=== PATIENT | male | born 1940 | race Caucasian/White ===

== ENCOUNTER → 2019-02-16 11:31 | Outpatient (CLI) | payer MEDICARE, OTHER, SELFPAY ==
--- NOTE | 2019-02-16 | DI.CT.S_ITS ---
PROCEDURE: CT ABDOMEN PELVIS WO CON INDICATIONS: KIDNEY STONES TECHNIQUE: Noncontrast 5 mm thick sections acquired from the diaphragms to the symphysis. 5 mm thick coronal and sagittal reformats were then performed. For radiation dose reduction, the following was used: automated exposure control, adjustment of mA and/or kV according to patient size. COMPARISON: [facility], CT, IVP (ABD & PEL WWO CONTRAST), 05/11/2016, 10:14. FINDINGS: Image quality: Excellent. Lung bases: Lung bases are clear. Heart size is normal. Urinary system: Both kidneys are normal in size. A nonobstructing staghorn calculus is present within the lower pole left kidney which measures 1.5 x 0.8 cm in diameter. There is a left upper pole pararenal cyst which is unchanged from the study dated 05/11/16. No no hydronephrosis. There is a 3 mm diameter stone within the upper right ureter (series 2, image 48). The ureter is not dilated. No left ureteral stones. The bladder is thin walled and partially fluid-filled. Echogenic debris is layered in the posterior bladder suggesting small stones. . Other solid organs: Liver is normal in size. Gallbladder is unremarkable. Pancreas is normal in contours. Spleen is normal in size. No adrenal nodules. Peritoneum and bowel: Unenhanced bowel loops demonstrate normal wall thickness and caliber. The appendix is thin walled. There are scattered sigmoid diverticula. No evidence for diverticulitis. No free fluid or air. Nodes and vessels: No retroperitoneal or mesenteric adenopathy by size criteria. Aorta and inferior vena cava are normal in caliber. There are scattered atheromatous calcifications throughout the aorta and iliac arteries bilaterally. Abdominal wall: No ventral hernias. Pelvis: No free pelvic fluid. No inguinal adenopathy. There is a small fat-containing right inguinal hernia. Bones: No suspicious bony lesions. No vertebral body compression fractures. IMPRESSION: 1. Nonobstructive left nephrolithiasis. 2. Right ureterolithiasis. No hydronephrosis or hydroureter associated with this ureteral calculus. 3. Probable small stones within the bladder. 4. Normal appendix. Diverticulosis. No acute diverticulitis. Dictated by: Megan Ruiz M.D. on 02/16/2019 at 12:01 Approved by: Megan Ruiz M.D. on 02/16/2019 at 12:28
== END ==
PROVIDERS: PCP Family Medicine; Visit Provider Urology
DX: N20.0 Calculus of kidney (principal); N21.0 Calculus in bladder
CPT/HCPCS: 74176

== ENCOUNTER → 2019-10-04 12:09 | Outpatient (CLI) | payer MEDICARE, OTHER, SELFPAY ==
--- NOTE | 2019-10-04 | DI.MRI.S_ITS ---
PROCEDURE: MR LUMBAR SPINE WO CON INDICATIONS: Spinal stenosis, lumbosacral region TECHNIQUE: Noncontrast sagittal T1 spin echo and T2 fast echo, sagittal STIR, axial T1 and T2 fast spin echo through the lumbar spine. In cases with scoliosis, additional coronal T2 fast spin echo may be performed. COMPARISON: [facility], CR, XR LUMBAR SPINE WITH OLBIQUES PLUS FLEXION EXTENSION, 09/25/2019, 11:01. [facility], , MR LUMBAR SPINE WO CON, 11/23/2017, 14:58. FINDINGS: Image quality: Excellent. Alignment and Curvature: There is normal bony alignment. Bone Marrow: Marrow is of normal overall signal. No acute vertebral body compression fractures. Spinal Cord: Conus medullaris terminates at the top of L1 level. Visualized cord demonstrates normal signal and size. Paraspinous Soft Tissues: No paravertebral masses. L1-L2: Normal appearance. L2-L3: Normal appearance. L3-L4: Interval development of a Schmorl's node involving L3, interval increase in disc height loss, interval increase in diffuse disc bulge. Moderate bilateral facet hypertrophy. Interval increase in canal stenosis, now moderate. Previously, there was right foraminal disc bulge. There is now a right foraminal disc protrusion which impinges on the right L3 nerve root in the right foramen. Mild left foraminal narrowing. L4-L5: Posterior disc bulge. Facet and ligament hypertrophy. Mild to moderate canal stenosis. Moderate bilateral foraminal narrowing with mild flattening deformity of the exiting bilateral L4 nerve roots. L5-S1: No significant change. Mild disc bulge. Facet and ligament hypertrophy. Mild canal stenosis. Moderate bilateral foraminal narrowing with mild flattening deformity on the exiting bilateral L5 nerve roots. IMPRESSION: 1. Interval progression of canal stenosis at L3-L4, now moderate. 2. Interval development of a right foraminal disc protrusion at L3-L4, impinging on the right L3 nerve root in the foramen. Question: Does this patient have a right L3 radiculopathy? 3. Canal stenosis is mild to moderate at L4-L5 and mild at L5-S1. 4. Multilevel facet arthropathy. 5. Multilevel foraminal narrowing as described above. Dictated by: Douglas Liu M.D. on 10/04/2019 at 13:35 Approved by: Douglas Liu M.D. on 10/04/2019 at 13:45
== END ==
PROVIDERS: PCP Family Medicine; Referring Provider Family Medicine; Visit Provider Physical Medicine & Rehabilitation Pain Medicine
DX: M48.07 Spinal stenosis, lumbosacral region (principal); M48.061 Spinal stenosis, lumbar region without neurogenic claudication; M51.26 Other intervertebral disc displacement, lumbar region; M47.816 Spondylosis without myelopathy or radiculopathy, lumbar region; M47.817 Spondylosis without myelopathy or radiculopathy, lumbosacral region
CPT/HCPCS: 72148

== ENCOUNTER → 2020-01-19 10:00 | Outpatient (CLI) | payer MEDICARE, OTHER, SELFPAY ==
--- NOTE | 2020-01-19 10:11 | DI.CT.S_ITS ---
PROCEDURE: CT KIDNEY URETER BLADDER (KUB) INDICATIONS: KIDNEY STONE TECHNIQUE: Noncontrast 5 mm thick sections acquired from the diaphragms to the symphysis. 5 mm thick coronal and sagittal reformats were then performed. For radiation dose reduction, the following was used: automated exposure control, adjustment of mA and/or kV according to patient size. COMPARISON: None. FINDINGS: Image quality: Excellent. Lung bases: Bibasilar dependent atelectasis is seen. Heart size is enlarged, no pericardial effusion. Urinary system: Both kidneys are normal in size. Multiple nonobstructing stones are seen in lower pole of left kidney measures up to 7 mm in size. Slight prominence of left renal collecting system and left ureter is seen extending to the level of left UVJ. No obstructing stone is noted. No right-sided hydronephrosis or perinephric fat stranding. Right ureter is within normal limits. Bladder wall thickness is normal. Enlarged prostate gland with significant mass effect of floor of urinary bladder is seen. 2 mm calcification is noted in dependent portion of bladder lumen. Other solid organs: Liver is normal in size. Gallbladder is within normal limits. Pancreas is normal in contours. Spleen is normal in size. No adrenal nodules. Peritoneum and bowel: Unenhanced bowel loops demonstrate normal wall thickness and caliber. No free fluid or air. Extensive sigmoid diverticulosis is seen, and no CT evidence of acute diverticulitis. Nodes and vessels: No retroperitoneal or mesenteric adenopathy by size criteria. Aorta and inferior vena cava are normal in caliber. Abdominal wall: No ventral hernias. Pelvis: No free pelvic fluid. No inguinal hernias or adenopathy. Bones: No suspicious bony lesions. No vertebral body compression fractures. IMPRESSION: 1. Finding is suggestive of a passed 2 mm left renal stone with mild residual left-sided hydronephrosis and hydroureter and 2 mm stone seen in dependent portion of bladder lumen. Nonobstructing left renal calculi. No right-sided renal stone hydronephrosis. 2. Enlarged prostate gland with significant mass effect on floor of urinary bladder. 3. No bowel obstruction. Extensive sigmoid diverticulosis, no CT evidence of acute diverticulitis. No free fluid or free air. Dictated by: Wolf Sherman M.D. on 01/19/2020 at 11:34 Approved by: Wolf Sherman M.D. on 01/19/2020 at 11:49
== END ==
PROVIDERS: PCP Family Medicine; Referring Provider Urology; Visit Provider Urology
DX: N13.2 Hydronephrosis with renal and ureteral calculous obstruction (principal); N40.0 Benign prostatic hyperplasia without lower urinary tract symptoms; K57.30 Diverticulosis of large intestine without perforation or abscess without bleeding
CPT/HCPCS: 74176

== ENCOUNTER → 2020-12-12 11:32 | Outpatient (CLI) | payer MEDICARE, OTHER, SELFPAY ==
--- NOTE | 2020-12-12 | DI.MRI.S_ITS ---
PROCEDURE: MR LUMBAR SPINE WO CON INDICATIONS: Spinal stenosis, lumbar region TECHNIQUE: Noncontrast sagittal T1 spin echo and T2 fast echo, sagittal STIR, axial T1 and T2 fast spin echo through the lumbar spine. In cases with scoliosis, additional coronal T2 fast spin echo may be performed. COMPARISON: [facility], MR, MR LUMBAR SPINE WO CON, 10/04/2019, 12:18. FINDINGS: Image quality: Excellent. Alignment and Curvature: Straightening of the normal lordotic curvature. Grade 1 anterolisthesis of L3 on L4 Bone Marrow: Marrow is of normal overall signal. No acute vertebral body compression fractures. Multilevel degenerative endplate sclerosis and spurring. Diffuse facet arthropathy. Large Schmorl's node involving the inferior endplate of L3 without adjacent marrow edema and unchanged appearance. Spinal Cord: Conus medullaris terminates at the L1 level. Visualized cord demonstrates normal signal and size. Paraspinous Soft Tissues: Bilateral presumed parapelvic cysts, indeterminate. T12-L1: Normal appearance. L1-L2: Normal appearance. L2-L3: Normal appearance. L3-L4: Mild dorsal epidural lipomatosis. Mild central canal narrowing. Partial effacement of both lateral recesses with asymmetric appearance, right greater than left. Mild left foraminal narrowing which is unchanged. Severe right foraminal stenosis with nerve root compression, also unchanged. L4-L5: No high-grade central canal narrowing. Partial effacement of both lateral recesses with bilaterally symmetric appearance. Moderate right foraminal narrowing. Moderate left foraminal stenosis. No interval change L5-S1: No high-grade central canal narrowing. Partial effacement of both lateral recesses with bilaterally symmetric appearance. Mild to moderate right foraminal narrowing. Mild left foraminal narrowing. No interval change IMPRESSION: Overall, no interval change since 10/04/19. Numerous bilateral foraminal stenoses as outlined above by spinal level. Grade 1 anterolisthesis of L3 on L4 as before. Dictated by: Palmer Valentin M.D. on 12/12/2020 at 13:45 Approved by: Palmer Valentin M.D. on 12/12/2020 at 13:51
== END ==
PROVIDERS: PCP Family Medicine; Referring Provider Physical Medicine & Rehabilitation Pain Medicine; Visit Provider Physical Medicine & Rehabilitation Pain Medicine
DX: M48.062 Spinal stenosis, lumbar region with neurogenic claudication (principal); M48.07 Spinal stenosis, lumbosacral region; M43.16 Spondylolisthesis, lumbar region
CPT/HCPCS: 72148

== ENCOUNTER → 2021-10-15 11:15 | Outpatient (CLI) | payer MEDICARE, OTHER, SELFPAY ==
--- NOTE | 2021-10-15 11:18 | DI.RAD.S_ITS ---
PROCEDURE: XR ABDOMEN 1V INDICATIONS: INCREASING BACK PAIN TECHNIQUE: One view of the abdomen acquired. COMPARISON: None. FINDINGS: Surgical changes and devices: None. Bowel: Bowel gas pattern is normal. Soft tissues: Probable left lower pole renal stone. Visualized solid organ contours appear normal in size. Bones: No suspicious bony lesions. Minimal degenerative levocurvature centered at L3. IMPRESSION: Probable left renal stone. Degenerative change in the lumbar spine. Dictated by: Douglas Liu M.D. on 10/15/2021 at 12:36 Approved by: Douglas Liu M.D. on 10/15/2021 at 12:37
== END ==
PROVIDERS: PCP Family Medicine; Referring Provider Urology; Visit Provider Urology
DX: N20.0 Calculus of kidney (principal); M47.816 Spondylosis without myelopathy or radiculopathy, lumbar region
CPT/HCPCS: 74018

== ENCOUNTER → 2022-04-29 10:30 | Outpatient (CLI) | payer MEDICARE, OTHER, SELFPAY ==
--- NOTE | 2022-04-29 | DI.US.S_ITS ---
PROCEDURE: US PERIPH VENOUS LOW EXTREM LT INDICATIONS: Rule out DVT lower left extremity TECHNIQUE: Real-time imaging, as well as color and pulse Doppler interrogation, were performed of the lower extremity deep veins from the inguinal ligament to the popliteal fossa. COMPARISON: None. FINDINGS: The common femoral, femoral and popliteal veins are normally compressible, and free of intraluminal thrombus. Color and pulse Doppler demonstrate normal phasic intraluminal flow. There is normal augmentation response to distal compression maneuver. IMPRESSION: No deep venous thrombosis. Dictated by: Shireen Infante M.D. on 04/29/2022 at 13:09 Approved by: Shireen Infante M.D. on 04/29/2022 at 13:09
== END ==
PROVIDERS: PCP Family Medicine; Referring Provider Physical Medicine & Rehabilitation Pain Medicine; Visit Provider Physical Medicine & Rehabilitation Pain Medicine
DX: M48.062 Spinal stenosis, lumbar region with neurogenic claudication (principal)
CPT/HCPCS: 93971

== ENCOUNTER → 2022-05-07 13:32 | Outpatient (CLI) | payer MEDICARE, OTHER, SELFPAY ==
--- NOTE | 2022-05-07 | DI.MRI.S_ITS ---
PROCEDURE: MR LUMBAR SPINE WO CON INDICATIONS: Spinal stenosis, lumbar region TECHNIQUE: Noncontrast sagittal T1 spin echo and T2 fast echo, sagittal STIR, and T2 fast spin echo through the lumbar spine. In cases with scoliosis, additional coronal T2 fast spin echo may be performed. COMPARISON: [facility], MR, MR LUMBAR SPINE WO CON, 12/12/2020, 11:43. FINDINGS: Image quality: Excellent. Alignment and Curvature: Mild grade 1 anterior spondylolisthesis L4-5, degenerative. Bone Marrow: Edematous Modic type 1 degenerative endplate changes at L3-4 are similar to the prior Spinal Cord: Conus medullaris terminates at the L1 level. Visualized cord demonstrates normal signal and size. Paraspinous Soft Tissues: No paravertebral masses. T12-L1: Normal appearance. L1-L2: Normal appearance. L2-L3: Disc space is maintained. Mild circumferential disc bulge with mild central stenosis. No foraminal stenosis L3-L4: Circumferential disc bulge with hypertrophic facet joints and ligamentum flavum laxity results in moderate central stenosis with effacement of the right lateral recess. Severe right and mild left foraminal stenosis. L4-L5: Disc space is maintained. Circumferential disc bulge and hypertrophic facet joints results in mild central stenosis. There is effacement of the left lateral recess. No foraminal stenosis L5-S1: Circumferential disc bulge with hypertrophic facet joints results in mild central stenosis. Moderate left and mild right foraminal stenosis IMPRESSION: 1. Multilevel degenerative disc disease and arthropathy results in varying degrees of central and foraminal stenosis including moderate central stenosis at L3-4 with effacement of the right lateral recess, similar to the prior Approved by: Eliseo Leo M.D. on 05/07/2022 at 18:08
== END ==
PROVIDERS: PCP Family Medicine; Referring Provider Physical Medicine & Rehabilitation Pain Medicine; Visit Provider Physical Medicine & Rehabilitation Pain Medicine
DX: M48.062 Spinal stenosis, lumbar region with neurogenic claudication (principal); M48.07 Spinal stenosis, lumbosacral region; M51.36 Other intervertebral disc degeneration, lumbar region; M51.37 Other intervertebral disc degeneration, lumbosacral region; M47.816 Spondylosis without myelopathy or radiculopathy, lumbar region
CPT/HCPCS: 72148

== ENCOUNTER → 2022-10-28 12:18 | Outpatient (CLI) | payer MEDICARE, OTHER, SELFPAY ==
--- NOTE | 2022-10-28 12:20 | DI.RAD.S_ITS ---
PROCEDURE: XR KUB INDICATIONS: Kidney stones TECHNIQUE: One view of the abdomen acquired. COMPARISON: [facility], CT, CT KIDNEY URETER BLADDER (KUB), 01/19/2020, 10:02. FINDINGS: Surgical changes and devices: None. Bowel: Bowel gas pattern is normal. Soft tissues: Multiple calcifications are seen projecting over the inferior pole of left kidney, the largest of which measures up to 8 mm. A calcification is seen projecting over the bladder in the midline, which could represent a phlebolith or a bladder calculus. Visualized solid organ contours appear normal in size. Bones: No suspicious bony lesions. Mild levoconvex curvature of the spine and focal degenerative changes at the L3-4 disc space level on the right. IMPRESSION: 1. Multiple left renal calculi measuring up to 8 mm. 2. Nonspecific calculi location projecting over the midline pelvis. A bladder calculus is not excluded. Approved by: Luis Miguel Fishman M.D. on 10/28/2022 at 16:29
== END ==
PROVIDERS: PCP Family Medicine; Referring Provider Urology; Visit Provider Urology
DX: N20.0 Calculus of kidney (principal); N40.1 Benign prostatic hyperplasia with lower urinary tract symptoms; N32.0 Bladder-neck obstruction; R39.9 Unspecified symptoms and signs involving the genitourinary system; R35.1 Nocturia
CPT/HCPCS: 74018; 81002; 99214

== ENCOUNTER → 2022-10-29 12:46 | Outpatient (CLI) | payer MEDICARE, OTHER, SELFPAY ==
--- NOTE | 2022-10-29 12:47 | DI.CT.S_ITS ---
PROCEDURE: CT ABDOMEN PELVIS WO CON INDICATIONS: Urinary calculi TECHNIQUE: Noncontrast 5 mm thick sections acquired from the diaphragms to the symphysis. 5 mm coronal and sagittal reformats were then performed. For radiation dose reduction, the following was used: automated exposure control, adjustment of mA and/or kV according to patient size. COMPARISON: [facility], CT, CT KIDNEY URETER BLADDER (KUB), 01/19/2020, 10:02. [facility], CT, CT ABDOMEN PELVIS WO CON, 02/16/2019, 11:50. FINDINGS: Image quality: Good Lower chest: Basal scarring/atelectasis, with some peripheral reticulation. Small hiatal hernia and mild distal esophageal wall thickening. Cardiomegaly. Coronary calcifications. Solid organs: Liver is unremarkable. Gallbladder is unremarkable. No pathologic dilation of the biliary tree or pancreatic duct. No splenomegaly. No adrenal nodules. No calcified right intrarenal calculus. No right hydronephrosis. Overall stable burden of stones in the left kidney, with the largest in the left lower pole measuring eight by 7 by 10 mm, with a Hounsfield unit of 540. Other smaller stones are present, under 5 mm. No left hydronephrosis. There are bladder stones, the largest layering dependently measuring 7 x 7 x 6 mm, Hounsfield units of 812. Vessels and lymph nodes: No pathologic adenopathy by size criteria. No abdominal aortic aneurysm. Bowel and peritoneum: Colonic diverticulosis. Wall thickening of the distal colon likely related to chronic diverticular disease, similar to prior, consider correlation with colonoscopy results. No pathologic ascites. The cecum is flipped into the upper abdomen, as before no abscess identified. Body wall: Unremarkable Pelvis: Prostatomegaly and heterogeneity with calcifications, not well evaluated on CT. Fat containing right inguinal hernia. Bones: No acute or suspicious osseous finding. There are degenerative changes. Progressed degenerative changes at L3-L4. IMPRESSION: Overall stable intrarenal stone burden in the left kidney compared to December 2019. No hydronephrosis. Bladder stone is also present, which is increased. Other findings as above Dictated by: Drake Bender M.D. on 10/29/2022 at 16:02 Approved by: Drake Bender M.D. on 10/29/2022 at 16:09
== END ==
PROVIDERS: PCP Family Medicine; Referring Provider Urology; Visit Provider Urology
DX: N20.9 Urinary calculus, unspecified (principal); N20.0 Calculus of kidney; N21.0 Calculus in bladder; K44.9 Diaphragmatic hernia without obstruction or gangrene; I51.7 Cardiomegaly; I25.10 Atherosclerotic heart disease of native coronary artery without angina pectoris; K57.90 Diverticulosis of intestine, part unspecified, without perforation or abscess without bleeding; N40.0 Benign prostatic hyperplasia without lower urinary tract symptoms; M47.816 Spondylosis without myelopathy or radiculopathy, lumbar region
CPT/HCPCS: 74176

== ENCOUNTER → 2022-11-09 14:13 | Outpatient (CLI) | payer MEDICARE, OTHER, SELFPAY | PROVIDERS: PCP Family Medicine; Visit Provider Urology | DX: N20.0 Calculus of kidney (principal); N20.9 Urinary calculus, unspecified; N21.0 Calculus in bladder; N32.0 Bladder-neck obstruction; R39.9 Unspecified symptoms and signs involving the genitourinary system; N40.1 Benign prostatic hyperplasia with lower urinary tract symptoms; R35.1 Nocturia | CPT/HCPCS: 81002; 87086; 99214 ==

== ENCOUNTER 2022-11-17 08:05 | Day surgery (SDC) | payer MEDICARE, OTHER, SELFPAY ==
[2022-11-16 14:55] VITALS: BMI 24.3
[2022-11-17 08:33] VITALS: BP 164/66; PULSE 82; RESP 19; TEMP 36.2; O2SAT 96; BMI 24.3
[2022-11-17] MEDS: LACTATED RINGERS 1,000 ML 42 ML IV (08:38)
--- NOTE | 2022-11-17 08:59 | PM.PREOP ---
Pre-operative Note COVID-19 COVID-19 status: Not tested Criteria for continued procedure: Delay expected to result in less-positive ultimate med/surg outcome and Non-surgical alternatives not available or appropriate per current SOC Interval Note History & Physical reviewed/Exam performed by Physician: Yes Changes to H&P: No
[2022-11-17] MEDS: CEFAZOLIN 2 GM/100 ML PREMIX 100 ML IV (09:40)
--- NOTE | 2022-11-17 09:45 | SUR.OPER ---
Lithotomy on padded OR bed, head on pillow, arms secured on padded arm boards at <90 degrees abduction. Legs secured in padded yellow fins stirrups.
--- NOTE | 2022-11-17 09:54 | P.OP_ITS ---
Procedure & Clinicians Procedure: Cystolitholapaxy mechanical Same procedure as scheduled: Yes Indications: This is a very pleasant 82-year-old gentleman who was found to have a bladder calculus during workup for hematuria. He presents this time for treatment of h is bladder stone. Surgeon: Ronn Jo Click Yes if Unassisted: Yes Anesthesia Type: General Operative Notes Findings: Urethral meatus is normal urethra is normal along its length with normal mucosa sphincter as well coapted. Prostate shows some obstructive character. And perhaps some evidence of previous resection. There is a single stone in the bladder approximately 2 cm in largest measurement. Ureteral orifices in normal position with clear efflux. There was moderate trabeculation no other abnormalities noted within the bladder. At the end the procedure the stone was completely evacuated. Closure Type: not applicable Specimen(s): other (Stone fragments) Estimated Blood Loss (mL): 0 Procedure in detail: Procedure in detail: After informed consent was obtained, the patient was identified and brought to the operating room where he was placed in a supine position on the table. Once on the table anesthesia was induced to maintained. Ensuring an adequate level of anesthesia the patient was transitioned to the lithotomy position where he was prepped, draped, prepared for Transurethral procedure. After prepping draping ensuring an adequate level of anesthesia and after time-out a 22 [place] cystoscope was passed through the urethra prostate and in the bladder under direct vision cystoscopy was performed with findings as noted above the lithotrite was then inserted the stone grasped and crushed to passable fragments. These were then evacuated and collected to be sent for compositional analysis. The bladder was then surveyed in of by cystoscopy once again no fragments were noted hemostasis was good the bladder was drained the scope was removed and the patient was awakened taken to the postanesthesia care unit having tolerated the procedure well, from there he will be discharged to home. There were no complications. Complications: none Post-operative Condition: stable Disposition: PACU Plan for aftercare: Patient to be discharged to home to follow up my office in 10-14 days.
[2022-11-17 10:00] VITALS: BP 100/42; PULSE 53; RESP 11; TEMP 36.6; O2SAT 95
[2022-11-17 10:05] VITALS: BP 138/67; PULSE 63; RESP 14; TEMP 36.2; O2SAT 97
[2022-11-17 10:11] VITALS: BP 134/55; PULSE 67; RESP 15; TEMP 36.2; O2SAT 97
[2022-11-17 10:15] VITALS: BP 149/92; PULSE 65; RESP 16; TEMP 36.2; O2SAT 95
[2022-11-17 10:20] VITALS: BP 150/92; PULSE 66; RESP 18; TEMP 36.2; O2SAT 96
== END 2022-11-17 10:40 | disposition home or self-care (01) ==
PROVIDERS: PCP Family Medicine; Referring Provider Urology; Visit Provider Urology
PROC: 0TCB8ZZ Extirpation of Matter from Bladder, Via Natural or Artificial Opening Endoscopic (ICD-10-PCS; CPT 52317; principal; 2022-11-17 09:15)
DX: N21.0 Calculus in bladder (principal); N40.1 Benign prostatic hyperplasia with lower urinary tract symptoms; N13.8 Other obstructive and reflux uropathy
CPT/HCPCS: 52317; J0690; J1100; J2405; J2704; J3010

== ENCOUNTER → 2022-11-25 10:22 | Outpatient (CLI) | payer MEDICARE, OTHER, SELFPAY | PROVIDERS: PCP Family Medicine; Visit Provider Urology | DX: N21.0 Calculus in bladder (principal); N20.0 Calculus of kidney; N40.1 Benign prostatic hyperplasia with lower urinary tract symptoms; N32.0 Bladder-neck obstruction; R35.1 Nocturia; R39.9 Unspecified symptoms and signs involving the genitourinary system | CPT/HCPCS: 81002; 87077; 87086; 87147; 87186 ==

== ENCOUNTER → 2022-12-25 10:22 | Outpatient (CLI) | payer MEDICARE, OTHER, SELFPAY | PROVIDERS: PCP Family Medicine; Visit Provider Urology | DX: N40.1 Benign prostatic hyperplasia with lower urinary tract symptoms (principal); N32.0 Bladder-neck obstruction; R35.1 Nocturia; R39.9 Unspecified symptoms and signs involving the genitourinary system; N21.0 Calculus in bladder; R82.81 Pyuria | CPT/HCPCS: 51798; 81002; 87077; 87086; 87186 ==

== ENCOUNTER → 2023-05-11 09:52 | Outpatient (CLI) | payer MEDICARE, OTHER, SELFPAY ==
--- NOTE | 2023-05-11 09:55 | DI.RAD.S_ITS ---
PROCEDURE: XR KUB INDICATIONS: Follow-up history of urinary stones TECHNIQUE: One view of the abdomen acquired. COMPARISON: None. FINDINGS: Surgical changes and devices: None. Bowel: Bowel gas pattern is normal. Soft tissues: A pair of calcifications projecting over the inferior pole of the left kidney measuring 9 mm and 3 mm. Ill-defined stone projects over the urinary bladder. Bones: No suspicious bony lesions. IMPRESSION: Stable renal stones and bladder stone. Dictated by: Gordy Enriquez M.D. on 05/11/2023 at 13:46 Approved by: Gordy Enriquez M.D. on 05/11/2023 at 13:48
== END ==
PROVIDERS: PCP Family Medicine; Referring Provider Urology; Visit Provider Urology
DX: N20.0 Calculus of kidney (principal); N20.9 Urinary calculus, unspecified; N21.0 Calculus in bladder
CPT/HCPCS: 74018

== ENCOUNTER → 2023-06-02 11:09 | Outpatient (CLI) | payer MEDICARE, OTHER, SELFPAY ==
[2023-08-06 14:16] LABS: Ca oxalate dihydrate 40 % (.); Ca oxalate monohydr 50 % (.); Hydroxyapatite 10 % (.); Size 4x4 mm (.)
== END ==
PROVIDERS: PCP Family Medicine; Visit Provider Urology
DX: R39.9 Unspecified symptoms and signs involving the genitourinary system (principal)
CPT/HCPCS: 81002; 82365; 87077; 87086; 87147; 87186

== ENCOUNTER 2023-08-17 08:24 | Day surgery (SDC) | payer MEDICARE, OTHER, SELFPAY ==
[2023-08-11 12:35] VITALS: BMI 24.3
--- NOTE | 2023-08-17 08:47 | PM.PREOP ---
Pre-operative Note COVID-19 COVID-19 status: Not tested Interval Note History & Physical reviewed/Exam performed by Physician: Yes Changes to H&P: No
[2023-08-17] MEDS: LACTATED RINGERS 1,000 ML 42 ML IV (08:54)
[2023-08-17 09:04] VITALS: BP 151/74; PULSE 62; RESP 22; TEMP 36.6; O2SAT 96; BMI 24.3
[2023-08-17] MEDS: CIPROFLOXACIN 400 MG/200 ML PIGGYBACK 200 MG IV (09:30)
--- NOTE | 2023-08-17 09:41 | SUR.OPER ---
Lithotomy on padded OR bed, head on pillow, arms secured on padded arm boards at <90 degrees abduction. Legs secured in padded yellow fins stirrups.
--- NOTE | 2023-08-17 09:50 | PM.OP.1 ---
Procedure & Clinicians Procedure: Cystoscopy with evacuation of bladder calculi Same procedure as scheduled: Yes Indications: This 82-year-old male had a history of bladder calculi. He presented with complaints of hematuria imaging revealed a possibility of bladder calculi the patient had flexible cystoscopy which revealed recurrent innumerable small calculi and several larger appearing calculi. The largest of which turns out to be approximately 4 mm. Presents this time for evacuation of the bladder calculi. Patient also has bladder outlet obstruction but does empty out well having his last postvoid residual be 43 mL. Surgeon: Ronn Jo Click Yes if Unassisted: Yes Anesthesia Type: General Operative Notes Findings: Urethral meatus and urethra normal with normal mucosa sphincter as well coapted. The prostate exhibits moderate approaching severe obstruction today there is what appears to be a high bladder neck and perhaps some bulging into the bladder. Anteriorly there may be some degree of a median lobe though it is not the classic configuration. Ureteral orifices in normal position with clear efflux. There are innumerable small calcifications in the bladder floor in the area of the trigone. There are several larger stones the largest of which is approximately 4 mm all of these were easily evacuated through the scope not requiring cystolitholapaxy or crushing in any way. The remainder of the bladder mucosa and bladder are normal. Closure Type: not applicable Specimen(s): other (Bladder calculi) Prosthetic devices, grafts, tissues, transplants, or devices: None Procedure in detail: Procedure in detail: After informed consent was obtained, the patient was identified and brought to the operating room where he was placed in a supine position on the table. Once there anesthesia was induced and maintained. Ensuring an adequate level of anesthesia the patient was transitioned to the lithotomy position where he was prepped, draped, prepared for Transurethral procedure. After ensuring an adequate level of anesthesia, prepping, draping, time-out, administration of antibiotics a 22 [place] cystoscope was passed through the urethra prostate and end of the bladder where cystoscopy was performed with the 30 and 70 degree lens the. With the bladder full the stones were sequentially evacuated. Until no stones remained. Again cystoscopy was performed with the 30 and 70 degree lens to confirm this. With this confirmed the bladder was drained the scope was removed and the patient was awakened having tolerated the procedure well to be transferred to the postanesthesia care unit for recovery. There were no complications the patient will be discharged to home to follow up my office in approximately 14 days. Complications: none Post-operative Condition: stable Disposition: PACU Plan for aftercare: Once fully awake and alert the patient is to be discharged to home to follow up in the office in 14 days.
[2023-08-17 09:57] VITALS: BP 135/72; PULSE 57; RESP 19; TEMP 36.3; O2SAT 93
[2023-08-17 10:02] VITALS: BP 125/65; PULSE 57; RESP 17; O2SAT 94
[2023-08-17 10:07] VITALS: BP 122/62; PULSE 51; RESP 21; O2SAT 94
[2023-08-17 10:15] VITALS: BP 132/62; PULSE 55; RESP 17; TEMP 36.4; O2SAT 93
[2023-08-26 08:55] LABS: Ca oxalate dihydrate 40 % (.); Ca oxalate monohydr 50 % (.); Hydroxyapatite 10 % (.); Size 3x3 mm (.)
== END 2023-08-17 10:25 | disposition home or self-care (01) ==
PROVIDERS: PCP Family Medicine; Referring Provider Urology; Visit Provider Urology
PROC: 0TCB8ZZ Extirpation of Matter from Bladder, Via Natural or Artificial Opening Endoscopic (ICD-10-PCS; CPT 52310; principal; 2023-08-17 09:45)
DX: N21.0 Calculus in bladder (principal)
CPT/HCPCS: 52310; 82365; J0744; J1100; J2405; J2704

== ENCOUNTER → 2023-09-08 11:04 | Outpatient (CLI) | payer MEDICARE, OTHER, SELFPAY | PROVIDERS: PCP Family Medicine; Visit Provider Urology | DX: R39.9 Unspecified symptoms and signs involving the genitourinary system (principal) | CPT/HCPCS: 87086 ==

== ENCOUNTER → 2023-09-08 11:53 | Outpatient (CLI) | payer MEDICARE, OTHER, SELFPAY ==
--- NOTE | 2023-09-08 11:56 | DI.RAD.S_ITS ---
PROCEDURE: XR KUB INDICATIONS: History of kidney stones left flank pain TECHNIQUE: One view of the abdomen acquired. COMPARISON: [facility], , XR KUB, 05/11/2023, 9:59. FINDINGS: Surgical changes and devices: None. Bowel: Bowel gas pattern is normal. Soft tissues: There is a new calcification projected over the left mid abdomen at the level of L3. The slightly more superior and lateral calcifications visualized on the comparison study dated May 11, 2023 are likely still present in the same region as before. Bones: No suspicious bony lesions. IMPRESSION: 1. Questionable ureteral calcification. If further characterization is warranted, CT KUB could be used. Dictated by: Megan Ruiz M.D. on 09/08/2023 at 15:02 Approved by: Megan Ruiz M.D. on 09/08/2023 at 15:04
== END ==
PROVIDERS: PCP Family Medicine; Referring Provider Urology; Visit Provider Urology
DX: N40.1 Benign prostatic hyperplasia with lower urinary tract symptoms (principal); N20.0 Calculus of kidney; R39.14 Feeling of incomplete bladder emptying; R35.1 Nocturia; N32.0 Bladder-neck obstruction; R10.9 Unspecified abdominal pain; R39.9 Unspecified symptoms and signs involving the genitourinary system; Z87.442 Personal history of urinary calculi
CPT/HCPCS: 74018; 81002; 87077; 87086; 87147; 87186; 99214

== ENCOUNTER → 2023-09-13 09:38 | Outpatient (CLI) | payer MEDICARE, OTHER, SELFPAY ==
--- NOTE | 2023-09-13 09:39 | DI.RAD.S_ITS ---
PROCEDURE: XR KUB INDICATIONS: Follow-up kidney stone TECHNIQUE: One view of the abdomen acquired. COMPARISON: [facility], CR, XR KUB, 09/08/2023, 12:09. [facility], CR, XR KUB, 05/11/2023, 9:59. FINDINGS: Surgical changes and devices: None. Bowel: Bowel gas pattern is normal. Soft tissues: 9 x 2 millimeter calcification projecting over the lower pole of the left kidney. Resolved stone projecting over the left ureter. Bones: No suspicious bony lesions. IMPRESSION: Resolved stone projecting over the left ureter. 9 x 2 millimeter calcification projecting over the lower pole of the left kidney. Dictated by: Gordy Enriquez M.D. on 09/13/2023 at 10:21 Approved by: Gordy Enriquez M.D. on 09/13/2023 at 10:22
== END ==
PROVIDERS: PCP Family Medicine; Referring Provider Urology; Visit Provider Urology
DX: N20.1 Calculus of ureter (principal); Z87.442 Personal history of urinary calculi
CPT/HCPCS: 74018

== ENCOUNTER → 2023-09-16 09:59 | Outpatient (CLI) | payer MEDICARE, OTHER, SELFPAY ==
[2023-09-24 11:20] LABS: Ca oxalate dihydrate 90 % (.); Ca oxalate monohydr 10 % (.); Size 2x2 mm (.)
== END ==
PROVIDERS: PCP Family Medicine; Visit Provider Urology
DX: N40.1 Benign prostatic hyperplasia with lower urinary tract symptoms (principal); R35.1 Nocturia; N20.0 Calculus of kidney; N20.9 Urinary calculus, unspecified; N32.0 Bladder-neck obstruction; N21.0 Calculus in bladder; R39.14 Feeling of incomplete bladder emptying; R39.9 Unspecified symptoms and signs involving the genitourinary system
CPT/HCPCS: 81002; 82365; 87086; 99213

== ENCOUNTER → 2023-10-12 09:46 | Outpatient (CLI) | payer MEDICARE, OTHER, SELFPAY ==
--- NOTE | 2023-10-12 09:52 | DI.RAD.S_ITS ---
PROCEDURE: XR KUB INDICATIONS: Kidney stones TECHNIQUE: One view of the abdomen acquired. COMPARISON: [facility], CR, XR KUB, 09/13/2023, 9:56. [facility], CR, XR KUB, 09/08/2023, 12:09. FINDINGS: Surgical changes and devices: None. Bowel: Bowel gas pattern is normal. Soft tissues: Previous calcification overlying the left renal shadow is no longer visualized. Calcification is noted overlying the left lower pelvis appearing new. Visualized solid organ contours appear normal in size. Bones: No suspicious bony lesions. IMPRESSION: Previous calcifications overlying the left renal shadow are not well seen and there is a new left lower pelvic calcification possibly representing migrated stone. Dictated by: Shireen Infante M.D. on 10/12/2023 at 13:34 Approved by: Shireen Infante M.D. on 10/12/2023 at 13:35
== END ==
LOC: RAD 09:50
PROVIDERS: PCP Family Medicine; Referring Provider Urology; Visit Provider Urology
DX: N20.0 Calculus of kidney (principal)
CPT/HCPCS: 74018

== ENCOUNTER → 2023-10-14 09:51 | Outpatient (CLI) | payer MEDICARE, OTHER, SELFPAY | PROVIDERS: PCP Family Medicine; Visit Provider Urology | DX: N40.1 Benign prostatic hyperplasia with lower urinary tract symptoms (principal); R39.14 Feeling of incomplete bladder emptying; R35.1 Nocturia; R39.9 Unspecified symptoms and signs involving the genitourinary system; N20.0 Calculus of kidney; N32.0 Bladder-neck obstruction | CPT/HCPCS: 81002; 87077; 87086; 87147; 87186; 99213 ==

== ENCOUNTER → 2023-11-11 09:11 | Outpatient (CLI) | payer MEDICARE, OTHER, SELFPAY ==
--- NOTE | 2023-11-11 09:17 | DI.RAD.S_ITS ---
PROCEDURE: XR KUB INDICATIONS: Ureter stone TECHNIQUE: One view of the abdomen acquired. COMPARISON: [facility], CT, CT ABDOMEN PELVIS WO CON, 10/29/2022, 12:53. [facility], CR, XR KUB, 10/28/2022, 12:20. [facility], CR, XR KUB, 10/12/2023, 9:01. [facility], CR, XR KUB, 09/13/2023, 9:56. FINDINGS: Surgical changes and devices: None. Bowel: Bowel gas pattern is normal. Soft tissues: Small stones projecting at the region of the inferior pole the left kidney are similar. No suspicious abdominal calcifications. Visualized solid organ contours appear normal in size. Bones: No suspicious bony lesions. IMPRESSION: Small nonobstructing left kidney stones suspected are similar. Dictated by: Jared Cooper M.D. on 11/12/2023 at 0:56 Approved by: Jared Cooper M.D. on 11/12/2023 at 0:59
== END ==
PROVIDERS: PCP Family Medicine; Referring Provider Urology; Visit Provider Urology
DX: N20.0 Calculus of kidney (principal); N21.0 Calculus in bladder; R39.14 Feeling of incomplete bladder emptying
CPT/HCPCS: 74018

== ENCOUNTER → 2023-12-24 10:03 | Outpatient (CLI) | payer MEDICARE, OTHER, SELFPAY ==
[2023-12-24 11:31] LABS: Appearance Urine UA CLEAR; Bilirubin Urine UA NEGATIVE (NEGATIVE); Color Urine UA YELLOW; Glucose Urine UA NEGATIVE (Negative); Ketones Urine UA NEGATIVE (NEGATIVE); Leukocyte Esterase Urine UA 2+ (NEGATIVE); Nitrite Urine UA POSITIVE (Negative); Occult Blood Urine UA 1+ (Negative); Protein Urine UA NEGATIVE (Negative); Urobilinogen Urine UA 0.2 E.U./dL (0.2); pH Urine UA 5.5 (4.5-8.0)
[2023-12-24 11:38] LABS: Bacteria Urine Many (>30); Culture Indicated Urine Specimen Cultured; RBC Urine 1-5/HPF (0-5/HPF); Squamous Epithelial Cell Urine None Seen (0-5/HPF); Urine Volume 10mL (spun); WBC Urine 10-30/HPF (0-5/HPF)
== END ==
PROVIDERS: PCP Family Medicine; Referring Provider Urology; Visit Provider Urology
DX: R39.9 Unspecified symptoms and signs involving the genitourinary system (principal)
CPT/HCPCS: 81001; 87077; 87086; 87147; 87186

== ENCOUNTER → 2024-02-10 09:23 | Outpatient (CLI) | payer MEDICARE, OTHER, SELFPAY ==
[2024-02-10 12:43] LABS: BUN Creatinine Ratio 17.2 (6-22); Blood Urea Nitrogen 16 mg/dL (9-20); Calcium 8.9 mg/dL (8.4-10.2); Carbon Dioxide 28 mmol/L (22-32); Chloride 105 mmol/L (98-107); Estimated Glomerular Filt Rate > 60 mL/min (>60); Glucose 95 mg/dL (80-110); HEMOLYSIS < 15 (0-50); Phosphorous 2.4 mg/dL (2.3-3.7); Potassium 4.2 mmol/L (3.4-5.1); Sodium 140 mmol/L (137-145); Uric Acid 4.3 mg/dL (3.5-8.5)
== END ==
LOC: LAB 09:25
PROVIDERS: PCP Family Medicine; Referring Provider Urology; Visit Provider Urology
DX: N20.0 Calculus of kidney (principal)
CPT/HCPCS: 36415; 80048; 82310; 83970; 84100; 84550

== ENCOUNTER → 2024-10-17 12:42 | Outpatient (CLI) | payer MEDICARE, OTHER, SELFPAY ==
--- NOTE | 2024-10-17 12:43 | DI.MRI.S_ITS ---
PROCEDURE: MR PELVIC PROSTATE PROTOCOL INDICATIONS: elevated PSA, BPH TECHNIQUE: Coronal HASTE, axial T1 FSE with fat saturation, 3-plane nonbreath-hold T2 FSE. After the administration of contrast, dynamic axial, delayed axial and coronal VIBE or 2-D FLASH with fat saturation through the pelvis. Diffusion weighted imaging and ADC was performed. COMPARISON: None. FINDINGS: Image quality: Diffusion weighted and dynamic contrast enhanced images are diagnostic. Prostate: Gland size is 5.0 x 5.8 x 5.5 cm; ellipsoid gland volume is 82.9 mL. Nodular hypertrophy of the transition zone. No focal areas of T2 hypointensity or restricted diffusion. Genitourinary system: Partially distended urinary bladder. There may be small stone dependent along the posterior wall and small bilateral urethroceles. Distal ureters are nondistended. Bowel and peritoneum: Extensive sigmoid diverticulosis. Visible bowel loops are otherwise within normal limits. Nodes and vessels: No pelvic or inguinal adenopathy by size criteria. Iliac vessels are normal in caliber. Soft tissues: No inguinal hernias. Bones: Marrow demonstrates normal overall signal, without lesions to suggest metastases. IMPRESSION: Enlarged prostate gland without PI-RADS four or PI-RADS five lesions to direct targeted biopsy. No pelvic lymphadenopathy by size criteria. No aggressive osseous abnormality. Dictated by: Zhane Vásquez M.D. on 10/17/2024 at 16:45 Approved by: Zhane Vásquez M.D. on 10/17/2024 at 16:56
== END ==
PROVIDERS: PCP Family Medicine; Referring Provider Urology; Visit Provider Urology
DX: N40.1 Benign prostatic hyperplasia with lower urinary tract symptoms (principal); N32.0 Bladder-neck obstruction; K57.30 Diverticulosis of large intestine without perforation or abscess without bleeding; R35.1 Nocturia; R39.9 Unspecified symptoms and signs involving the genitourinary system
CPT/HCPCS: 72197; A9579

== ENCOUNTER → 2025-05-09 09:01 | Outpatient (CLI) | payer MEDICARE, OTHER, SELFPAY ==
[2025-05-10 09:11] LABS: PSA, Total 16.5 ng/mL (0.0-4.0)
== END ==
PROVIDERS: PCP Family Medicine; Referring Provider Urology; Visit Provider Urology
DX: R97.20 Elevated prostate specific antigen [PSA] (principal); N40.1 Benign prostatic hyperplasia with lower urinary tract symptoms; N13.8 Other obstructive and reflux uropathy; R35.1 Nocturia
CPT/HCPCS: 36415; 84153; 84154

== ENCOUNTER → 2025-05-14 09:56 | Outpatient (CLI) | payer MEDICARE, OTHER, SELFPAY ==
--- NOTE | 2025-05-14 09:58 | DI.RAD.S_ITS ---
PROCEDURE: XR KUB INDICATIONS: kidney stones TECHNIQUE: One view of the abdomen acquired. COMPARISON: [facility], CR, XR KUB, 11/11/2023, 9:22. [facility], CR, XR KUB, 10/12/2023, 9:01. FINDINGS: Surgical changes and devices: None. Bowel: Bowel gas pattern is normal. Soft tissues: 8 mm calcification overlying the left inferior renal shadow. No right calcified nephrolithiasis by radiograph. Visualized solid organ contours appear normal in size. Bones: No suspicious bony lesions. Lumbar levoscoliosis centered at L3-4. IMPRESSION: 8 mm calcified stone overlies the left renal shadow, similar to prior comparison CT in 2022. Dictated by: Tuan Miller M.D. on 05/14/2025 at 10:58 Approved by: Tuan Miller M.D. on 05/14/2025 at 10:59
== END ==
PROVIDERS: PCP Family Medicine; Referring Provider Family Medicine; Visit Provider Urology
DX: E83.59 Other disorders of calcium metabolism (principal); N21.0 Calculus in bladder; N20.0 Calculus of kidney
CPT/HCPCS: 74018

== ENCOUNTER → 2025-05-16 14:53 | Outpatient (CLI) | payer MEDICARE, OTHER, SELFPAY | PROVIDERS: PCP Family Medicine; Visit Provider Urology | DX: N40.1 Benign prostatic hyperplasia with lower urinary tract symptoms (principal); N13.8 Other obstructive and reflux uropathy | CPT/HCPCS: 87086 ==